=== PATIENT | female | born 1965 | race Caucasian/White ===

== ENCOUNTER → 2023-02-20 | Outpatient (CLI) | payer OTHER ==
[~2023-02-20] MED LIST: K-Dur20 MEQ PO
[2023-02-20 20:41] LABS: Bun/Creatinine Ratio 19.6 (12.0-20.0); Calcium, Blood 9.1 mg/dL (8.5-10.1); Creatinine, Blood 0.66 mg/dL (0.40-1.00); Free Thyroxine 1.03 ng/dL (0.70-1.60); Potassium, Blood 4.3 mmol/L (3.5-5.5); Thyroid Stimulating Hormone 0.243 uIU/mL (0.360-4.800); Triiodothyronine, Free 3.11 pg/mL (2.18-3.98)
== END | disposition home or self-care (01) ==
LOC: LAB SHORT 18:52 → LAB 18:52
PROVIDERS: Physician Assistant
DX: E05.90 Thyrotoxicosis, unspecified without thyrotoxic crisis or storm (principal); R10.9 Unspecified abdominal pain
CPT/HCPCS: 80048; 84439; 84443; 84481

== ENCOUNTER → 2023-04-30 | Outpatient (CLI) | payer OTHER ==
[2023-05-01 14:08] LABS: HPV 16 Negative (Negative); HPV 18 Negative (Negative); HPV OTHER HR TYPES Negative (Negative)
== END ==
LOC: LAB SHORT 07:50 → LAB 07:50
PROVIDERS: Physician Assistant
DX: Z01.419 Encounter for gynecological examination (general) (routine) without abnormal findings (principal)
CPT/HCPCS: 87624; G0145

== ENCOUNTER 2023-10-07 11:20 | Day surgery (SDC) | payer OTHER ==
[~2023-10-07] VITALS: Ht 175.3 cm; Wt 73.7 kg
[~2023-10-07 11:20] MED LIST changes: +DOCUZEN 8.6-501 EACH PO; +LORA10ER PO; +MONT10T PO; +ONDA4 PO; +Vitamin D2000 UNIT PO
[2023-10-07] MEDS ORDERED: VITAMIN D350 MC3 (11:37)
[2023-10-07 12:54] VITALS: BP 113/65
== END 2023-10-07 13:05 | disposition home or self-care (01) ==
LOC: ORSCSDS 11:20
PROVIDERS: Specialist
PROC: 0DJD8ZZ Inspection of Lower Intestinal Tract, Via Natural or Artificial Opening Endoscopic (ICD-10-PCS; principal; 2023-10-07 13:15)
DX: K59.00 Constipation, unspecified (principal); R10.9 Unspecified abdominal pain; K64.8 Other hemorrhoids; E78.5 Hyperlipidemia, unspecified; Z79.899 Other long term (current) drug therapy
CPT/HCPCS: J2704; J7120

== ENCOUNTER 2024-12-28 11:54 | Day surgery (SDC) | payer OTHER ==
[~2024-12-28] VITALS: Ht 175.3 cm; Wt 80.1 kg
[~2024-12-28 11:54] MED LIST changes: +Lactated Ringer's 1,000 ML IV ONE; +Lidocaine 1%-Epineph 1:200000 30 ML SDV ONE; +VITAMIN D350 MC3
[2024-12-28] MEDS ORDERED: ATEN25 PO (12:05)
[2024-12-28] MEDS ORDERED: METHIMAZOLE5 M1 PO (12:05)
[2024-12-28] MEDS ORDERED: Midazolam HCl 1MG / ML 2ML Vial ONE (12:15)
[2024-12-28] MEDS ORDERED: propofoL 20 ML IV ONE (12:15)
[2024-12-28] MEDS ORDERED: FentaNYL Citrate 50 MCG/ML 2 ML Injection ONE (12:15)
[2024-12-28] MEDS ORDERED: Dexamethasone Sod Phos 10 MG/ML 1ML VIAL ONE (12:16)
[2024-12-28] MEDS ORDERED: Rocuronium Bromide 10 MG/ML 5ML Injection IV ONE (12:16)
[2024-12-28] MEDS ORDERED: Ondansetron HCl 2 MG / ML 2ML Vial ONE (12:16)
[2024-12-28] MEDS ORDERED: ePHEDrine Sulfate 50 MG/ML 1ML Injection ONE (13:22)
[2024-12-28] MEDS ORDERED: Sugammadex Sodium 200 MG/2ML SDV (100 MG/ML) ONE (13:27)
--- NOTE | 2024-12-28 13:59 | NUR ---
12/28/24 3109 Sola Paz PT ARRIVES TO PACU A&O X4, DENIES PAIN/NAUSEA, ON RA, VSS. REPORT FROM TAM SPAIN, & DR. LOMAX. NO VISIBLE SIGNS OF DISTRESS NOTED.
--- NOTE | 2024-12-28 14:04 | NUR ---
12/28/24 1404 Sola Paz PT TRANSFERRED TO SDU A&O X4, NO COMPLAINTS. VSS, ON RA. PT TOLERATING SIPS OF WATER W/O DIFFICULTY. NO VISIBLE SIGNS OF DISTRESS NOTED.
[2024-12-28 14:05] VITALS: BP 121/71
[2024-12-28] MEDS ORDERED: OxyCODONE HCL 5 MG TAB ONE (14:23)
== END 2024-12-28 14:50 | disposition home or self-care (01) ==
LOC: ORSCSDS 11:54
PROVIDERS: Otolaryngology
PROC: 0GTH0ZZ Resection of Right Thyroid Gland Lobe, Open Approach (ICD-10-PCS; principal; 2024-12-28 13:15)
DX: E04.1 Nontoxic single thyroid nodule (principal); E03.9 Hypothyroidism, unspecified; Z79.899 Other long term (current) drug therapy; Z86.718 Personal history of other venous thrombosis and embolism
CPT/HCPCS: 88307; A9270; J1100; J2250; J2405; J2704; J3010; J7120